=== PATIENT | female | born 1950 | race Caucasian/White ===

== ENCOUNTER 2019-03-28 10:56 | Inpatient (IN) | payer OTHER ==
[~2019-03-28] VITALS: Ht 172.7 cm; Wt 90.3 kg
[2019-03-28] MEDS ORDERED: RESTORIL30 M1 PO (12:05)
[2019-03-28] MEDS ORDERED: VITAMIN D400 UNI2 (12:06)
[2019-03-28] MEDS ORDERED: LOSARTAN POTASS50 MG (12:07)
[2019-03-28] MEDS ORDERED: PROSAC (12:07)
[2019-03-28] MEDS ORDERED: LEVOTHYROXINE25 MCG PO (14:30)
[2019-03-28] MEDS ORDERED: HYZAAR 50-12.51 EACH PO (14:30)
[2019-03-28] MEDS ORDERED: CLONAZEPAM0.25 MG PO (14:31)
[2019-04-05] MEDS ORDERED: PROZAC20 MG PO (10:14)
[2019-04-07] MEDS ORDERED: ELIQUIS2.5 MG PO (14:41)
[2019-04-07] MEDS ORDERED: RESTORIL30 M1 PO (14:41)
[2019-04-07] MEDS ORDERED: PERCOCET 5-3251 EACH PO (14:41)
[2019-04-07] MEDS ORDERED: CEFADROXIL500 MG PO (14:41)
== END 2019-04-07 18:10 | DRG 470 ==
LOC: SURH 04-05 06:00 → O/R 04-05 06:00 → SURH 04-05 09:30
PROVIDERS: ADMIT Orthopaedic Surgery
PROC: 0MNP0ZZ Release Left Knee Bursa and Ligament, Open Approach (ICD-10-PCS; 2019-04-05)
PROC: 0SRD0J9 Replacement of Left Knee Joint with Synthetic Substitute, Cemented, Open Approach (ICD-10-PCS; principal; 2019-04-05 09:30)
DX: M17.12 Unilateral primary osteoarthritis, left knee (principal); M22.12 Recurrent subluxation of patella, left knee; E03.8 Other specified hypothyroidism; I10 Essential (primary) hypertension

== ENCOUNTER 2022-08-29 15:01 | Inpatient (IN) | payer OTHER ==
[~2022-08-29] VITALS: Ht 45.7 cm; Wt 81.6 kg
[~2022-08-29 15:01] MED LIST: CEFADROXIL500 MG PO; CLONAZEPAM0.25 MG PO; ELIQUIS2.5 MG PO; HYZAAR 50-12.51 EACH PO; LEVOTHYROXINE25 MCG PO; LOSARTAN POTASS50 MG; PERCOCET 5-3251 EACH PO; PROSAC; PROZAC20 MG PO; RESTORIL30 M1 PO; VITAMIN D400 UNI2
[2022-09-01] MEDS ORDERED: ATACAND HCT 321 EAC1 PO (13:19)
[2022-09-01] MEDS ORDERED: LEVOTHYROXINE25 MCG PO (13:20)
[2022-09-01] MEDS ORDERED: RESTORIL30 MG PO (13:20)
[2022-09-02] MEDS ORDERED: RISPERIDONE0.5 MG (16:12)
[2022-09-02] MEDS ORDERED: HYDROCORTISONE5 MG (16:12)
[2022-09-02] MEDS ORDERED: PREGABALIN50 MG (16:12)
[2022-09-02] MEDS ORDERED: MELATONIN10 MG (16:12)
[2022-09-03] MEDS ORDERED: ELIQUIS2.5 MG PO (08:33)
[2022-09-03] MEDS ORDERED: DUI500 PO (08:33)
[2022-09-03] MEDS ORDERED: PERCOCET 5-3251 EACH PO (08:33)
== END 2022-09-03 11:38 | disposition home or self-care (01) | DRG 470 ==
LOC: SURH 09-02 06:26 → O/R 09-02 06:26 → SURH 09-02 11:15
PROVIDERS: ADMIT Orthopaedic Surgery; ATTEND Orthopaedic Surgery
PROC: 0MNN0ZZ Release Right Knee Bursa and Ligament, Open Approach (ICD-10-PCS; 2022-09-02)
PROC: 0SRC0JZ Replacement of Right Knee Joint with Synthetic Substitute, Open Approach (ICD-10-PCS; principal; 2022-09-02 15:00)
DX: M17.11 Unilateral primary osteoarthritis, right knee (principal); M22.11 Recurrent subluxation of patella, right knee; Z20.822 Contact with and (suspected) exposure to COVID-19